=== PATIENT | female | born 1950 | race Caucasian/White ===

== ENCOUNTER → 2019-09-18 16:56 | Outpatient (BNVA) | payer MEDICARE, BC, SELFPAY | PROVIDERS: Family Provider Nurse Practitioner Family; PCP Family Medicine; Visit Provider Family Medicine | DX: M79.673 Pain in unspecified foot (principal); R60.9 Edema, unspecified; N39.0 Urinary tract infection, site not specified; E78.2 Mixed hyperlipidemia | CPT/HCPCS: 80053; 80061; 81000; 85025 ==

== ENCOUNTER → 2019-09-19 12:57 | Outpatient (BNVA) | payer MEDICARE, BC, SELFPAY | PROVIDERS: Family Provider Nurse Practitioner Family; PCP Family Medicine; Visit Provider Family Medicine | DX: M79.673 Pain in unspecified foot (principal); R60.9 Edema, unspecified; N39.0 Urinary tract infection, site not specified; R39.9 Unspecified symptoms and signs involving the genitourinary system | CPT/HCPCS: 80053 ==

== ENCOUNTER → 2020-02-24 15:02 | Outpatient (BNVA) | payer MEDICARE, BC, SELFPAY | PROVIDERS: Family Provider Nurse Practitioner Family; PCP Family Medicine; Visit Provider Family Medicine | DX: M25.561 Pain in right knee (principal); G89.29 Other chronic pain; K59.09 Other constipation; I10 Essential (primary) hypertension | CPT/HCPCS: 73562 ==

== ENCOUNTER → 2020-06-16 18:17 | Outpatient (BNVA) | payer MEDICARE, BC, SELFPAY | PROVIDERS: Family Provider Nurse Practitioner Family; PCP Family Medicine; Visit Provider Nurse Practitioner Family | DX: I10 Essential (primary) hypertension (principal); M79.10 Myalgia, unspecified site | CPT/HCPCS: 80053; 80061; 82306; 84443; 85025 ==

== ENCOUNTER 2021-07-21 06:00 | Outpatient (RCR) | payer MEDICARE, BC, SELFPAY | END 2021-08-19 23:59 | disposition home or self-care (01) | LOC: TPT 06:00 | PROVIDERS: Family Provider Nurse Practitioner Family; PCP Family Medicine; Referring Provider Orthopaedic Surgery; Visit Provider Orthopaedic Surgery | DX: M17.10 Unilateral primary osteoarthritis, unspecified knee (principal) | CPT/HCPCS: 97110; 97163 ==

== ENCOUNTER 2021-08-20 06:00 | Outpatient (RCR) | payer MEDICARE, BC, SELFPAY | END 2021-09-18 23:59 | disposition home or self-care (01) | LOC: TPT 06:00 | PROVIDERS: Family Provider Nurse Practitioner Family; PCP Family Medicine; Referring Provider Orthopaedic Surgery; Visit Provider Orthopaedic Surgery | DX: M17.10 Unilateral primary osteoarthritis, unspecified knee (principal) | CPT/HCPCS: 97110 ==

== ENCOUNTER → 2021-08-31 11:50 | Outpatient (BNVA) | payer MEDICARE, BC, SELFPAY | PROVIDERS: Family Provider Nurse Practitioner Family; PCP Family Medicine; Visit Provider Podiatrist Foot & Ankle Surgery | DX: L84 Corns and callosities (principal); L60.3 Nail dystrophy; I73.9 Peripheral vascular disease, unspecified; M20.41 Other hammer toe(s) (acquired), right foot; M20.42 Other hammer toe(s) (acquired), left foot | CPT/HCPCS: 11056; 11721 ==

== ENCOUNTER → 2021-09-24 11:43 | Outpatient (BNVA) | payer MEDICARE, BC, SELFPAY | PROVIDERS: Family Provider Nurse Practitioner Family; PCP Family Medicine; Visit Provider Nurse Practitioner Family | DX: I10 Essential (primary) hypertension (principal); N39.0 Urinary tract infection, site not specified; M25.571 Pain in right ankle and joints of right foot; M81.0 Age-related osteoporosis without current pathological fracture; G35 Multiple sclerosis | CPT/HCPCS: 73610; 80053; 80061; 81003; 82306; 82607; 83735; 83880; 84439; 84443; 85025; 87086 ==

== ENCOUNTER 2021-09-27 13:50 | Outpatient (CLI) | payer MEDICARE, BC, SELFPAY ==
--- NOTE | 2021-09-27 14:15 | USCV_ITS ---
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 The following venous structures were evaluated: common femoral vein, profunda vein, proximal portion of the greater saphenous vein, superficial femoral vein, and the popliteal vein. In addition, the posterior tibial and peroneal trunk were evaluated. Serial compression, augmentation maneuvers, and spectral Doppler flow evaluation were performed. FINDINGS: Normal 2-D Doppler and augmentation and compressibility throughout the lower extremity venous structures. Additional imaging through the proximal calf veins also reveals no thrombus. Limited evaluation of the greater saphenous vein is patent with no thrombus.. CONCLUSIONS No evidence of right lower extremity DVT. Mt Daniel MD (Electronically Signed) Final Date: 28 Sep 2021 09:37 S
== END 2021-09-27 13:51 | disposition home or self-care (01) ==
LOC: RAD 13:54
PROVIDERS: Family Provider Nurse Practitioner Family; PCP Family Medicine; Visit Provider Nurse Practitioner Family
DX: M79.89 Other specified soft tissue disorders (principal)
CPT/HCPCS: 93971

== ENCOUNTER → 2021-10-08 11:50 | Outpatient (BNVA) | payer MEDICARE, BC, SELFPAY | PROVIDERS: Family Provider Nurse Practitioner Family; PCP Family Medicine; Visit Provider Family Medicine | DX: N39.0 Urinary tract infection, site not specified (principal); E53.8 Deficiency of other specified B group vitamins | CPT/HCPCS: 81000 ==

== ENCOUNTER 2021-10-20 06:00 | Outpatient (RCR) | payer MEDICARE, BC, SELFPAY | END 2021-11-18 23:59 | disposition home or self-care (01) | LOC: TPT 06:00 | PROVIDERS: PCP Family Medicine; Referring Provider Orthopaedic Surgery; Visit Provider Orthopaedic Surgery | DX: M17.11 Unilateral primary osteoarthritis, right knee (principal) | CPT/HCPCS: 97110 ==

== ENCOUNTER 2021-11-19 06:00 | Outpatient (RCR) | payer MEDICARE, BC, SELFPAY | END 2021-12-19 23:59 | disposition home or self-care (01) | LOC: TPT 06:00 | PROVIDERS: PCP Family Medicine; Referring Provider Orthopaedic Surgery; Visit Provider Orthopaedic Surgery | DX: M17.11 Unilateral primary osteoarthritis, right knee (principal) | CPT/HCPCS: 97110 ==

== ENCOUNTER → 2021-12-21 11:42 | Outpatient (BNVA) | payer MEDICARE, BC, SELFPAY | PROVIDERS: PCP Family Medicine; Visit Provider Podiatrist Foot & Ankle Surgery | DX: E11.8 Type 2 diabetes mellitus with unspecified complications (principal); L84 Corns and callosities; L60.3 Nail dystrophy; I73.9 Peripheral vascular disease, unspecified; M20.41 Other hammer toe(s) (acquired), right foot; M20.42 Other hammer toe(s) (acquired), left foot | CPT/HCPCS: 11056; 11721 ==

== ENCOUNTER → 2022-04-11 13:21 | Outpatient (BNVA) | payer MEDICARE, BC, SELFPAY | PROVIDERS: PCP Family Medicine; Visit Provider Family Medicine | DX: E53.8 Deficiency of other specified B group vitamins (principal); E78.2 Mixed hyperlipidemia; I10 Essential (primary) hypertension; I73.9 Peripheral vascular disease, unspecified | CPT/HCPCS: 80053; 80061; 82607; 85025 ==

== ENCOUNTER → 2022-05-03 09:36 | Outpatient (BNVA) | payer MEDICARE, BC, SELFPAY | PROVIDERS: PCP Family Medicine; Visit Provider Podiatrist Foot & Ankle Surgery | DX: E11.8 Type 2 diabetes mellitus with unspecified complications (principal); L60.8 Other nail disorders; L84 Corns and callosities; L60.3 Nail dystrophy; I73.9 Peripheral vascular disease, unspecified; M20.41 Other hammer toe(s) (acquired), right foot; M20.42 Other hammer toe(s) (acquired), left foot | CPT/HCPCS: 11056; 11721 ==

== ENCOUNTER → 2022-08-16 10:47 | Outpatient (BNVA) | payer MEDICARE, BC, SELFPAY | PROVIDERS: PCP Family Medicine; Visit Provider Podiatrist Foot & Ankle Surgery | DX: I73.9 Peripheral vascular disease, unspecified (principal); L60.8 Other nail disorders; L84 Corns and callosities; L60.3 Nail dystrophy; M20.41 Other hammer toe(s) (acquired), right foot; M20.42 Other hammer toe(s) (acquired), left foot | CPT/HCPCS: 11056; 11721 ==

== ENCOUNTER → 2023-03-14 12:21 | Outpatient (BNVA) | payer MEDICARE, BC, SELFPAY | PROVIDERS: PCP Family Medicine; Visit Provider Family Medicine | DX: K21.9 Gastro-esophageal reflux disease without esophagitis (principal); E78.2 Mixed hyperlipidemia; I10 Essential (primary) hypertension; R32 Unspecified urinary incontinence; F41.9 Anxiety disorder, unspecified; E53.8 Deficiency of other specified B group vitamins | CPT/HCPCS: 80053; 80061; 84443; 85025 ==

== ENCOUNTER → 2023-09-19 12:00 | Outpatient (BNVA) | payer MEDICARE, BC, SELFPAY | PROVIDERS: PCP Family Medicine; Visit Provider Family Medicine | DX: E78.2 Mixed hyperlipidemia (principal); I10 Essential (primary) hypertension; M81.0 Age-related osteoporosis without current pathological fracture; F41.9 Anxiety disorder, unspecified; K21.9 Gastro-esophageal reflux disease without esophagitis | CPT/HCPCS: 80053; 80061; 82306; 84443; 85025 ==

== ENCOUNTER 2023-09-28 11:32 | Outpatient (CLI) | payer MEDICARE, BC, SELFPAY ==
--- NOTE | 2023-09-28 11:30 | MM_ITS ---
WS: [id number] BILATERAL 3D TOMOSYNTHESIS DIGITAL SCREENING MAMMOGRAPHY WITH CAD CLINICAL INFORMATION: Z12.39 - Encounter for other screening for malignant neop... HISTORY: Screening mammogram. No current complaints. COMPARISON: None. TECHNIQUE: Bilateral CC and MLO views. FINDINGS: The breasts are composed of heterogeneous fibroglandular density tissue, which can limit the detectio n of small underlying mass lesions. Numerous indeterminate bilateral breast nodules RIGHT greater lori n LEFT. No comparisons available. Recommend bilateral breast ultrasound in further evaluation. A few incidental punctate calcifications. A few lucent centered calcifications. Vascular calcificatio n. MM/[place] [id number] IMPRESSION: BI-RADS: 0-Incomplete: Need additional imaging evaluation FOLLOW UP: Need Additional Imaging Recommend bilateral breast ultrasound.
== END 2023-09-28 11:33 | disposition home or self-care (01) ==
LOC: RAD 11:32
PROVIDERS: PCP Family Medicine; Visit Provider Family Medicine
DX: Z12.31 Encounter for screening mammogram for malignant neoplasm of breast (principal); R92.323 Mammographic fibroglandular density, bilateral breasts; N63.10 Unspecified lump in the right breast, unspecified quadrant; N63.20 Unspecified lump in the left breast, unspecified quadrant; R92.1 Mammographic calcification found on diagnostic imaging of breast
CPT/HCPCS: 77063; 77067

== ENCOUNTER 2023-11-02 09:38 | Outpatient (CLI) | payer MEDICARE, BC, SELFPAY ==
--- NOTE | 2023-11-02 10:00 | US_ITS ---
WS: [id number] ULTRASOUND BREAST BILATERAL TECHNIQUE: Ultrasound bilateral breast focused area of concern. CLINICAL INFORMATION: R92.1 - Mammographic calcification found on diagnostic im... COMPARISON: Prior mammogram 09/28/2023. FINDINGS: RIGHT BREAST: Multiple solid lobulated hypoechoic nodules RIGHT breast at the 12:00, 3:00, 6:00, 9:00 , and 7:00 positions. Largest nodules at the 12 o'clock position measuring 1.8 x 1.5 x 1.1 cm and 6 o'clock position measur ing 1.8 x 1.7 x 0.7 cm. These lesions are indeterminate and recommend further evaluation with ultraso und-guided biopsy. Additional notable solid lesion at the 7 o'clock position taller than wide measuring approximately 8 x 8 x 5 mm. LEFT BREAST: Ultrasound LEFT breast all 4 quadrants is normal in appearance. No suspicious lesions in the LEFT breast. US/US breast BI limited* [id number] IMPRESSION: BI-RADS 4 suspicious Recommend ultrasound-guided biopsy of selected indeterminate RIGHT breast jina temple.
== END 2023-11-02 09:39 | disposition home or self-care (01) ==
LOC: RAD 09:38
PROVIDERS: PCP Family Medicine; Visit Provider Family Medicine
DX: R92.1 Mammographic calcification found on diagnostic imaging of breast (principal); N63.13 Unspecified lump in the right breast, lower outer quadrant; N63.11 Unspecified lump in the right breast, upper outer quadrant
CPT/HCPCS: 76642

== ENCOUNTER 2023-12-06 11:45 | Outpatient (CLI) | payer MEDICARE, BC, SELFPAY ==
--- NOTE | 2023-12-06 11:45 | US_ITS ---
WS: [id number] ULTRASOUND-GUIDED BREAST BIOPSY x 2 HISTORY: rt breast masses. COMPARISON: 11/02/2023, 09/28/2023 Procedure, risks and complications are explained to the patient. Medications are reviewed. Consent is obtained. There are multiple masses within the RIGHT breast. Only 2 masses will be targeted. After reimaging th e breast the mass at 6:00 and 12:00 are probably the same mass. The masses in the RIGHT breast is localized with ultrasound. Mass is targeted for biopsy at 12:00 an d 7:00. Skin is cleansed with ChloraPrep and anesthetized with 1% buffered lidocaine. Small dermatome is made. Under sterile conditions each mass is biopsied with a 14-gauge Achieve needle. Multiple cor e biopsies are performed. Material placed in formalin and sent to pathology for review. No complicati ons encountered. Masses are labeled according to their location and separate containers or use for ea ch mass biopsy. Breast tissue marker ([employer] ultrasound enhanced ribbon): Biopsy clips are LEFT within the masses at 12 o'clock and 7:00. Patient left the radiology suite with no complications. [place] [facility] [place] [facility] with any concerns. Note: There are several similar masses in the RIGHT breast which were recently described. Majority of these masses all appear similar. The 2 most concerning for biopsied and negative. Recommend 6-month diagnostic mammogram and ultrasound follow-up of the RIGHT breast only to document stability of the b iopsied masses and the additional scattered masses in the RIGHT breast which did not go undergo biops y. This was explained in detail to the patient at the time of the biopsy. US/[place] [id number] IMPRESSION: 1. Uncomplicated core needle biopsy RIGHT breast mass 12:00. PATHOLOGY: Fragments of benign breast parenchyma with focal features suggestive of fibroadenoma formation. No atypia or malignancy. RECOMMENDATION: Diagnostic mammography with ultrasound follow-up 6 months RIGHT breast. 2. Uncomplicated core needle biopsy RIGHT breast mass 7:00. PATHOLOGY: Findings consistent with fibroadenoma formation, partially hyalinize d. No atypia or malignancy. RECOMMENDATION: Diagnostic mammography with ultrasound follow-up in 6 months RI T breast.
--- NOTE | 2023-12-06 12:58 | US_ITS ---
WS: [id number] ULTRASOUND-GUIDED BREAST BIOPSY x 2 HISTORY: rt breast masses. COMPARISON: 11/02/2023, 09/28/2023 Procedure, risks and complications are explained to the patient. Medications are reviewed. Consent is obtained. There are multiple masses within the RIGHT breast. Only 2 masses will be targeted. After reimaging th e breast the mass at 6:00 and 12:00 are probably the same mass. The masses in the RIGHT breast is localized with ultrasound. Mass is targeted for biopsy at 12:00 an d 7:00. Skin is cleansed with ChloraPrep and anesthetized with 1% buffered lidocaine. Small dermatome is made. Under sterile conditions each mass is biopsied with a 14-gauge Achieve needle. Multiple cor e biopsies are performed. Material placed in formalin and sent to pathology for review. No complicati ons encountered. Masses are labeled according to their location and separate containers or use for ea ch mass biopsy. Breast tissue marker ([employer] ultrasound enhanced ribbon): Biopsy clips are LEFT within the masses at 12 o'clock and 7:00. Patient left the radiology suite with no complications. Patient is instructed to return [place] [facility] [place] [facility] with any concerns. Note: There are several similar masses in the RIGHT breast which were recently described. Majority of these masses all appear similar. The 2 most concerning for biopsied and negative. Recommend 6-month diagnostic mammogram and ultrasound follow-up of the RIGHT breast only to document stability of the b iopsied masses and the additional scattered masses in the RIGHT breast which did not go undergo biops y. This was explained in detail to the patient at the time of the biopsy. US/[place] [id number] IMPRESSION: 1. Uncomplicated core needle biopsy RIGHT breast mass 12:00. PATHOLOGY: Fragments of benign breast parenchyma with focal features suggestive of fibroadenoma formation. No atypia or malignancy. RECOMMENDATION: Diagnostic mammography with ultrasound follow-up 6 months RIGHT breast. 2. Uncomplicated core needle biopsy RIGHT breast mass 7:00. PATHOLOGY: Findings consistent with fibroadenoma formation, partially hyalinize d. No atypia or malignancy. RECOMMENDATION: Diagnostic mammography with ultrasound follow-up in 6 months RI T breast.
== END 2023-12-06 11:46 | disposition home or self-care (01) ==
PROVIDERS: PCP Family Medicine; Visit Provider Family Medicine
DX: N63.15 Unspecified lump in the right breast, overlapping quadrants (principal); N63.13 Unspecified lump in the right breast, lower outer quadrant
CPT/HCPCS: 19083; 19084; 88305

== ENCOUNTER → 2024-03-05 12:17 | Outpatient (BNVA) | payer MEDICARE, BC, SELFPAY | PROVIDERS: PCP Nurse Practitioner Family; Visit Provider Nurse Practitioner Family | DX: M81.0 Age-related osteoporosis without current pathological fracture (principal); I10 Essential (primary) hypertension; E78.2 Mixed hyperlipidemia; F41.9 Anxiety disorder, unspecified | CPT/HCPCS: 80053; 80061; 82306; 84443; 85025 ==

== ENCOUNTER → 2025-05-19 11:34 | Outpatient (BNVA) | payer MEDICARE, BC, SELFPAY | PROVIDERS: PCP Nurse Practitioner Family; Visit Provider Nurse Practitioner Family | DX: I10 Essential (primary) hypertension (principal); E78.2 Mixed hyperlipidemia; F41.9 Anxiety disorder, unspecified | CPT/HCPCS: 80053; 80061; 83880; 84443; 85025 ==